=== PATIENT | male | born 1970 | race Caucasian/White ===

== ENCOUNTER 2021-05-29 20:09 | Emergency (ER) | payer OTHER ==
[~2021-05-29] VITALS: Ht 180.3 cm; Wt 99.8 kg
[2021-05-29 21:06] LABS: Basophils # (auto) 0 10 ^3/uL (0-0.2); Basophils % (auto) 0.4 % (0.0-2.0); Eosinophils # (auto) 0.1 10 ^3/uL (0-0.8); Eosinophils % (auto) 1.2 % (0.0-7.0); Hemoglobin 16.6 g/dL (13.5-17.5); Lymphocytes # (auto) 0.9 10 ^3/uL (0.4-5.4); Lymphocytes % (auto) 15.2 % (10.0-50.0); Mean Corpuscular Hemoglobin 31.2 pg (28.0-32.0); Mean Corpuscular Hgb Conc. 35.3 g/dL (32.0-36.0); Mean Corpuscular Volume 88.2 fL (80.0-100.0); Monocytes # (auto) 0.5 10 ^3/uL (0-1.3); Monocytes % (auto) 9.2 % (0.0-12.0); Neutrophils # (auto) 4.4 10 ^3/uL (1.6-8.6); Nucleated Red Blood Cells % 0.1 %; Red Blood Cells 5.33 10^6/uL (4.5-5.90); White Blood Cell 5.9 10^3/uL (4.4-10.8)
[2021-05-29 21:25] LABS: Albumin 3.8 g/dL (3.4-5.0); Calcium 8.7 mg/dL (8.5-10.1); Magnesium 2.4 mg/dL (1.6-2.6); Potassium 3.3 mmol/L (3.5-5.1)
[2021-05-29 21:30] LABS: BUN/Creatinine Ratio 12.9; Bilirubin, Total 0.4 mg/dL (0.2-1.0); Total Protein 7.6 g/dL (6.4-8.2)
[2021-05-29 22:51] VITALS: BP 123/81
== END 2021-05-29 23:10 | disposition home or self-care (01) ==
LOC: ER 20:09
DX: K29.70 Gastritis, unspecified, without bleeding (principal); F10.10 Alcohol abuse, uncomplicated
CPT/HCPCS: 36415; 80053; 83690; 83735; 85025

== ENCOUNTER 2024-06-15 07:24 | Observation (INO) | payer BC ==
[~2024-06-15] VITALS: Ht 177.8 cm; Wt 120.2 kg
[2024-06-15] MEDS: EPINEPHrine HCL 1 MG/1 ML AMP ONE ×2 (10:54→13:49)
[2024-06-15] MEDS: BUPIVACAINE 0.5% MPF INJ 30ML SDV IJ ONE (10:55)
[2024-06-15] MEDS: ROPIVACAINE 0.5% (5MG/ML) 20ML AMPULE IJ ONE (11:03)
[2024-06-15] MEDS ORDERED: MIDAZOLAM HCL 2MG/2ML 2ml VIAL (1mg/ml) ONE (11:05)
[2024-06-15] MEDS ORDERED: ROCURONIUM 10MG/ML 10ML VIAL IV ONE (11:05)
[2024-06-15] MEDS ORDERED: PROPOFOL 10 MG/ML 20 ML IV ONE (11:05)
[2024-06-15] MEDS ORDERED: LIDOCAINE 2% (LOCAL ANESTH.) PF 5ml SDV ONE (11:05)
[2024-06-15] MEDS ORDERED: HYDROmorphone HCL 2 MG/ML VL/or syr ONE ×2 (11:05→15:08)
[2024-06-15] MEDS ORDERED: KETOROLAC TROMETH 30 MG/ML 1ML VIAL ONE (11:05)
[2024-06-15] MEDS ORDERED: DexAMETHasone SOD PHOS 10MG/1ML VIAL INJ ONE (11:05)
[2024-06-15] MEDS ORDERED: KETAMINE 50mg/ML 1ml syringe ONE (11:05)
[2024-06-15] MEDS ORDERED: fentaNYL CITRATE 100 MCG/2 ML VL ONE ×2 (11:05→14:09)
[2024-06-15] MEDS ORDERED: ONDANSETRON HCL 4 MG/2 ML VIAL ONE (11:06)
[2024-06-15] MEDS ORDERED: GLYCOPYRROLATE 0.2 MG/ML 1ML VIAL ONE (11:06)
[2024-06-15] MEDS: ceFAZolin 2 GM/D5W100ml 100 ML IV ONE (11:55)
[2024-06-15] MEDS ORDERED: SUGAMMADEX 200mg/2ml Vial (100MG/ML) IV ONE (12:24)
[2024-06-15 15:42] VITALS: PULSE 77; RESP 12; O2SAT 98
[2024-06-15] MEDS ORDERED: HYDROmorphone HCL 2 MG/ML VL/or syr IV PRN ×2 (16:00)
[2024-06-15] MEDS: ONDANSETRON HCL 4 MG/2 ML VIAL IV ONE (16:00)
[2024-06-15] MEDS ORDERED: HYDROcodone-ACET 5/325MG TAB PO PRN (16:00)
[2024-06-15] MEDS: LACTATED RINGER'S 1,000 ML IV SCH (16:00)
[2024-06-15] MEDS ORDERED: NITROGLYCERIN 0.4 MG SL TAB SL PRN (16:00)
[2024-06-15] MEDS ORDERED: BISACODYL 5 MG EC TAB PO PRN (16:00)
[2024-06-15] MEDS ORDERED: ACETAMINOPHEN 325 MG TAB PO PRN (16:00)
[2024-06-15] MEDS ORDERED: MORPHINE SULFATE INJ 2 MG/ml SYRG IV PRN (16:00)
[2024-06-15] MEDS ORDERED: ONDANSETRON HCL 4 MG/2 ML VIAL IV PRN (16:00)
[2024-06-15 16:10] VITALS: PULSE 80; RESP 17; O2SAT 98
[2024-06-15 16:45] VITALS: PULSE 86; RESP 12; O2SAT 97
--- NOTE | 2024-06-15 17:32 | DVHOP ---
DATE OF SURGERY: 06/15/2024 PREOPERATIVE DIAGNOSIS: Right shoulder massive rotator cuff tear with subacromial impingement and biceps tendon tear. POSTOPERATIVE DIAGNOSIS: Right shoulder massive rotator cuff tear with subacromial impingement and biceps tendon tear. PROCEDURES PERFORMED: Right shoulder arthroscopy with superior capsular reconstruction, extensive debridement, subacromial decompression, biceps tenodesis, biceps and subscapularis repair. ANESTHESIA: General with interscalene block. ESTIMATED BLOOD LOSS: 50 mL. COMPLICATIONS: None. IMPLANTS: Arthrex FiberTak all-suture anchor x3, SpeedBridge anchor system, two medial row anchors SwiveLock x2 and 2 lateral row anchors x2 and one self-punching SwiveLock x1. INDICATIONS FOR PROCEDURE: The patient is a 53-year-old male who presented to the clinic with a history of right shoulder pain. Clinical and radiological evaluation demonstrated a massive cuff tear with grade 3 atrophy of the supraspinatus and infraspinatus. Nonoperative and operative management options were discussed. Surgery in the form of shoulder arthroscopy with rotator cuff repair, superior capsular reconstruction, tendon transfer and reverse shoulder arthroplasty were considered. Pros and cons were discussed. Given the young age of the patient and good abduction prior to surgery, superior capsular reconstruction for temporary pain relief until he is a candidate for reverse shoulder replacement was considered. Benefits, risks, and treatment alternatives were discussed. Specific complications of surgery such as neurovascular injury, infection, arthrofibrosis, loss of limb or life were discussed. Guarded prognosis of 50% with clear clinical outcomes were discussed with him. The patient decided to proceed with surgical option. DESCRIPTION OF PROCEDURE: The patient was identified in the preoperative holding area and the surgical site was marked. A consent was verified. He was brought into the operating room and placed supine on the operating room table. General anesthesia was administered. Intravenous antibiotics were given. The extremity was prepped and draped in the usual sterile manner. A timeout was called out to confirm the identity of the patient, the nature of the surgery, the site of surgery, the availability of implants, x-rays and allergies to medications. A standard posterior portal was established. A 30-degree scope was inserted. Standard anterior portal was established. A probe was inserted and the findings were as follows: * Massive rotator cuff tear including the supraspinatus, infraspinatus and the subscapularis. * Significant medial subluxation of the biceps tendon. 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 * No loose bodies. * Degenerative labral tears were found. Undersurface biceps tendon tear. Based on these findings, I decided to repair the subscapularis. This was a very large tear involving the upper half of the subscapularis with significant retraction. The BICEPS tendon was subluxed medially. Two FiberLink sutures were passed through the tendon and the biceps was pulled laterally to expose the rotator interval. This was developed and very carefully scar tissue was removed around the subscapularis tendon. Care was taken not to cause inadvertent injury to the axillary nerve by very careful dissection on the medial aspect of the subscapularis. This was necessary to expose the subscapularis tendon for better repair. After mobilization of the subscapularis, 2 FiberLink sutures were passed through the upper third of the subscapularis. These were inserted into the SwiveLock anchor. The SwiveLock anchor was now tapped into the lesser tuberosity after using a punch. Excellent fixation was noted. Repair of the subscapularis was complete. A subacromial space was entered. There was significant synovitis and scar tissue. This was carefully debrided. Extensive shoulder debridement was carried out in the form of rotator interval release and posterior cuff release, debridement of labrum and cartilage and debridement of the undersurface of the biceps tendon. The remnant of the supraspinatus muscle was identified. No tendon tissue was identified. Significant retraction up to the medial edge of the glenoid was noted. This was irreparable. Infraspinatus was also torn. A posterior portion of the infraspinatus was still intact. The rotator interval was developed. The biceps tendon was identified as well. I decided to proceed with the original plan for superior capsular reconstruction as the rotator cuff was irreparable and the patient had good preoperative abduction and flexion. The medial row was secured with three FiberTak anchors. An additional portal was then established. Three all-suture FiberTak anchors were inserted from anterior to posterior. These were brought out from different portals. Next, the graft was brought on to the operative field. This was a dermal allograft. Measurements were taken for all 4 cm length. These were marked on the graft. The graft was now shaped appropriately. Next, the suture management was done very carefully with the help of the cannula and a divider in the cannula. Sutures were now sequentially brought through the divider and the cannula separately. These were now inserted through the medial edge of the graft. The suture loop mechanism was now used to bring the graft inside the shoulder and along the medial edge of the glenoid. Excellent fixation was noted with no pullout of the anchors and great approximation of the graft. The lateral edge of the graft was now brought on to the footprint as in a standard double row rotator cuff repair. A SpeedBridge technique was used for this purpose. Two medial row anchors were inserted. The FiberTape sutures were now inserted through the graft. This wedged sutures were now cut. These sutures were now passed through the lateral row SwiveLock anchor. These were now inserted into the footprint. Excellent fixation was noted. Watertight closure was noted. For the lateral row anchor, the biceps tendon sutures were also inserted to complete the tenodesis. The biceps tendon was kept attached to the superior labrum and rather used as an autograft augmentation after debridement. This would help depress the humeral head. Irrigation was given. Subacromial decompression was completed using a bone cutter. Anterior edge of the acromion was removed, approximately 5-7 mm. The graft was very well secured both on the medial and the lateral point. The humeral head was completely covered and the posterior half of the infraspinatus tendon was noted overlapping a little bit with the graft making for excellent coverage. Irrigation was given. The incisions were closed with 2-0 nylon. Sterile dressing was applied. The shoulder was placed in a shoulder immobilizer. DISPOSITION: Good. The patient was extubated and taken to recovery without any complications. PLAN: The plan is to follow up the patient in 2 weeks, to remain in the brace for 8 weeks. No physical therapy to be started until after 6 weeks after surgery. MD GERARDO Angela/BERNICE/FREDDY TID: [id number] RECEIPT: [id number] [facility]
[2024-06-15 21:00] VITALS: BP 137/71; PULSE 60; RESP 18; TEMP 97.3; O2SAT 96
[2024-06-15] MEDS: DOCUSATE SOD 100 MG CAP PO SCH (21:54)
[2024-06-16 01:00] VITALS: BP 124/85; PULSE 79; RESP 18; TEMP 97.3; O2SAT 98
[2024-06-16] MEDS: HYDROcodone-ACET 10/325MG TAB PO PRN (02:46)
[2024-06-16 05:00] VITALS: BP_SYST 112; BP_SYST 149; BP_DIAS 49; BP_DIAS 98; PULSE 68; PULSE 72; RESP 17; RESP 18; TEMP 97.6; TEMP 98; O2SAT 98
[2024-06-16 07:03] LABS: Chloride 103 mmol/L (98-107); Potassium 4.4 mmol/L (3.5-5.1); Sodium 138 mmol/L (136-145)
[2024-06-16 07:04] LABS: Anion Gap 11 (5-15); Calcium 8.9 mg/dL (8.7-10.4); Carbon Dioxide 24 mmol/L (20-31)
[2024-06-16 07:09] LABS: BUN/Creatinine Ratio 15.9 (10.0-20.0); Blood Urea Nitrogen 11 mg/dL (9-23); Glucose 129 mg/dL (74-106)
[2024-06-16 07:10] LABS: Basophils # (auto) 0 10 ^3/uL (0-0.2); Basophils % (auto) 0.1 % (0.0-2.0); Eosinophils # (auto) 0 10 ^3/uL (0-0.8); Eosinophils % (auto) 0.1 % (0.0-7.0); Hematocrit 41.9 % (41.0-53.0); Hemoglobin 13.8 g/dL (13.5-17.5); Lymphocytes % (auto) 8.2 % (10.0-50.0); Mean Corpuscular Hemoglobin 30.7 pg (28.0-32.0); Monocytes # (auto) 0.9 10 ^3/uL (0-1.3); Neutrophils # (auto) 10.6 10 ^3/uL (1.6-8.6); Neutrophils % (auto) 84.6 % (37.0-80.0); Platelet Count (auto) 145 10^3/uL (140-450); Red Blood Cells 4.51 10^6/uL (4.5-5.90); Red Cell Distribution Width 14.5 % (11.8-14.3); White Blood Cell 12.5 10^3/uL (4.4-10.8)
--- NOTE | 2024-06-16 07:41 | DVHDS2 ---
Discharge Summary Date of Admission Jun 15, 2024 at 15:58 Date of Discharge: Jun 16, 2024 Labs/Diagnostic Data: Laboratory Results Test 06/16/24 05:58 White Blood Count 12.5 10^3/uL (4.4-10.8) Red Blood Count 4.51 10^6/uL (4.5-5.90) Hemoglobin 13.8 g/dL (13.5-17.5) Hematocrit 41.9 % (41.0-53.0) Mean Corpuscular Volume 93.0 fL (80.0-100.0) Mean Corpuscular Hemoglobin 30.7 pg (28.0-32.0) Mean Corpuscular Hemoglobin Concent 33.0 g/dL (32.0-36.0) Red Cell Distribution Width 14.5 % (11.8-14.3) Platelet Count 145 10^3/uL (140-450) Mean Platelet Volume 7.6 fL (6.9-10.8) Neutrophils (%) (Auto) 84.6 % (37.0-80.0) Lymphocytes (%) (Auto) 8.2 % (10.0-50.0) Monocytes (%) (Auto) 7.0 % (0.0-12.0) Eosinophils (%) (Auto) 0.1 % (0.0-7.0) Basophils (%) (Auto) 0.1 % (0.0-2.0) Neutrophils # (Auto) 10.6 10 ^3/uL (1.6-8.6) Lymphocytes # (Auto) 1.0 10 ^3/uL (0.4-5.4) Monocytes # (Auto) 0.9 10 ^3/uL (0-1.3) Eosinophils # (Auto) 0 10 ^3/uL (0-0.8) Basophils # (Auto) 0 10 ^3/uL (0-0.2) Nucleated Red Blood Cells 0.0 % Sodium Level 138 mmol/L (136-145) Potassium Level 4.4 mmol/L (3.5-5.1) Chloride Level 103 mmol/L (98-107) Carbon Dioxide Level 24 mmol/L (20-31) Anion Gap 11 (5-15) Blood Urea Nitrogen 11 mg/dL (9-23) Creatinine 0.69 mg/dL (0.700-1.30) Glomerular Filtration Rate Calc 111 mL/min (>90) BUN/Creatinine Ratio 15.9 (10.0-20.0) Serum Glucose 129 mg/dL (74-106) Calcium Level 8.9 mg/dL (8.7-10.4) Other Laboratory Tests 06/16/24 05:58 Brief Hx & Hospital Course: Patient was brought to the hospital yesterday to undergo a right shoulder arthroscopic rotator cuff repair, he tolerated the procedure well without complications and was kept overnight for postoperative observation. Patient reports some postoperative shoulder pain that is being well managed with the help of pain medication. Patient is otherwise feeling well denying any other complaints or concerns during my evaluation and would like to go home. Condition at Discharge: Stable Final Diagnosis/Problems List s/p rotator cuff repair Discharge Disposition: Home Discharge Instruct/Medications Diet: Regular Activity: See Comment Activity comment: Patient to remain for six weeks from date of surgery Follow Up/Referral: Patient instructed to follow up with our office in 1st postoperative evaluation Medications: Rx sent via our outpatient EMR system Discharge Statement: "Patient was advised to return to the ER or call 911 if any headaches, dizziness, shortness of breath, chest pain, abdominal pain, bleeding, fevers, or worsening of medical condition. Patient was counseled about treatment plan, medications, possible side effects, patientverbalized understanding. All questions were answered to the best of my ability. This discharge took greater then 30 minutes in planning, reviewing documentation, counseling the patient, and discussing with other team members." ASSESSMENT ASSESSMENT Assessment FELIX CARDONA Jun 16, 2024 07:41
--- NOTE | 2024-06-16 07:43 | DVHPN2 ---
Progress Note - Dictate Date Seen: Jun 16, 2024 Medical Necessity Reason Pt with a Central, PICC or Fol: No Subjective Patient was lying comfortably in bed during my evaluation reports some postoperative shoulder pain that has been well managed with the help of pain medication. Patient is otherwise feeling well denying any other complaint or concern during my evaluation and would like to go home. vital signs Vital Sign Date Time Temp Pulse Resp B/P (MAP) Pulse Ox O2 Delivery O2 Flow Rate FiO2 06/16/24 05:00 97.6 68 18 149/98 (115) 98 97.6 06/15/24 20:00 Nasal Cannula* 3 32 Total Intake and Output 06/15/24 06/15/24 06/16/24 15:00 23:00 07:00 Intake Total 200 ml 1500 ml Balance 200 ml 1500 ml medications Current Medications Medications Dose Ordered Sig/Radha Route Start Time Stop Time Status Last Admin Dose Admin Lactated Ringer's 1,000 ml @ 100 mls/hr Q10H IV 06/15/24 16:00 06/16/24 04:41 100 MLS/HR Acetaminophen 650 mg Q6HP PRN PO 06/15/24 16:00 Acetaminophen/ Hydrocodone Bitart 1 tab Q4HP PRN PO 06/15/24 16:00 Hydromorphone HCl 1 mg Q2HP PRN IV 06/15/24 16:00 Ondansetron HCl 4 mg Q6HP PRN IV 06/15/24 16:00 Docusate Sodium 100 mg Q12HR PO 06/15/24 22:00 06/15/24 21:54 100 MG Bisacodyl 5 mg Q12HP PRN PO 06/15/24 16:00 Acetaminophen/ Hydrocodone Bitart 1 tab Q4HP PRN PO 06/15/24 16:00 06/16/24 02:46 1 TAB Nitroglycerin 0.4 mg Q5MINP PRN SL 06/15/24 16:00 Morphine Sulfate 2 mg Q30M PRN IV 06/15/24 16:00 objective A&O x4 in no acute distress Shoulder range of motion not fully evaluated as patient remains in shoulder immobilizer Dressing clean, dry, and intact No distal edema or calf tenderness to palpation Neurovascularly intact with cap refill less than 2 seconds laboratory and microbiology Laboratory Tests 06/16/24 05:58 Test 06/16/24 05:58 Range/Units Serum Glucose 129 H 74-106 mg/dL Assessment/Plan Patient to be discharged home and advised to remain in his shoulder immobilizer for six weeks from date of surgery. I also instructed the patient to maintain his dressings clean, dry, and intact and to call our office if he has any questions or concerns. I advised the patient to follow up with our office in 10-14 days from date of surgery for his 1st postoperative evaluation. Rx sent via our outpatient EMR system. He understood and agreed. Plan discussed with: Patient FELIX CARDONA Jun 16, 2024 07:43
[2024-06-16 09:38] VITALS: BP 117/60; PULSE 75; RESP 18; TEMP 98.2; O2SAT 97
[2024-06-16 10:57] VITALS: BP 117/60; PULSE 75; RESP 18; TEMP 98.8; O2SAT 97
[2024-06-16 11:00] VITALS: BP_SYST 117; BP_DIAS 67; BP_DIAS 7; PULSE 80; O2SAT 94
[2024-06-16 12:33] VITALS: BP 97/41; PULSE 58; RESP 17; TEMP 98; O2SAT 99
== END 2024-06-16 11:59 | disposition home or self-care (01) ==
LOC: SUR 07:24 → INTOOBSV 15:58 → OVERFLOW 15:58 → WEST WING 17:34
PROVIDERS: ADMIT Student in an Organized Health Care Education/Training Program; ATTEND Student in an Organized Health Care Education/Training Program
DX: M75.121 Complete rotator cuff tear or rupture of right shoulder, not specified as traumatic (principal); M75.101 Unspecified rotator cuff tear or rupture of right shoulder, not specified as traumatic; M65.811 Other synovitis and tenosynovitis, right shoulder; M94.211 Chondromalacia, right shoulder; Z79.899 Other long term (current) drug therapy; Z98.890 Other specified postprocedural states
CPT/HCPCS: 29823; 29826; 29827; 29828; 36415; 80048; 85025; C1713; G0378; J0171; J1100; J1171; J1885; J2003; J2250; J2405; J2704; J2795; J3010; J3490; Q4125; A4565